=== PATIENT | female | born 1995 | race Caucasian/White ===

== ENCOUNTER 2018-05-06 16:32 | Emergency (ER) | payer SELFPAY ==
[~2018-05-06] VITALS: Ht 170.2 cm; Wt 94.3 kg
--- NOTE | 2018-05-06 17:02 | NUR ---
called patient and searched lobby and surrounding areas. no answer.
[2018-05-06 17:09] VITALS: BP 132/78
--- NOTE | 2018-05-06 17:14 | NUR ---
patient to lobby to wait available room with steady gait.
--- NOTE | 2018-05-06 18:59 | NUR ---
PT AMBULATES TO BED 3
--- NOTE | 2018-05-06 19:18 | NUR ---
23 yo f right sided inguinal radiating bl right lower back x 3 days. Patient denies any recent injury or fall. Patient denies any urinary complaints, hematuria, or n/v/d. Patient denies any urinary or bowel incontinence. pt denies injury to the area. aaox4. gcs 15. cms intact. rr even and unlabored. lungs bilaterally clear. abd soft, non-tender. er md talley notified. pt needs met. safety precautions in place. will continue to monitor.
--- NOTE | 2018-05-06 20:00 | NUR ---
PT RESTING COMFORTABLY ON [facility] AT THIS TIME W/ VSS, RR EVEN AND UNLABORED. SAFETY PRECAUTIONS IN PLACE. WILL CONTINUE TO MONITOR.
[2018-05-06] MEDS ORDERED: KETOROLAC 60 MG/2 ML VIAL IM ONE (20:55)
--- NOTE | 2018-05-06 21:07 | NUR ---
TRANSFER OF CARE AT THIS TIME, REPORT GIVEN TO DOUGLAS Reyes RN
--- NOTE | 2018-05-06 21:10 | NUR ---
ASSUMED CARE OF PT AT THIS TIME. PT RESTING COMFORTABLY. NAD. VSS. PT AWAITS ULTRASOUND, LAB RESULTS, AND MD DISPOSITION.
[2018-05-06 21:32] LABS: BASOPHILS # (AUTO) 0.1 K/uL (0.00-0.22); BASOPHILS % (AUTO) 1.2 % (0.0-2.0); EOSINOPHILS # (AUTO) 0.3 K/uL (0-0.4); EOSINOPHILS % (AUTO) 2.5 % (0.0-4.0); HEMATOCRIT 39.4 % (36-48); HEMOGLOBIN 13.2 g/dL (12.0-16.0); LYMPHOCYTES # (AUTO) 2.3 K/uL (2.5-16.5); LYMPHOCYTES % (AUTO) 19.8 % (20.5-51.1); MEAN CORPUSCULAR HEMOGLOBIN 28 pg (27-31); MEAN CORPUSCULAR HGB CONC 33 g/dL (33-37); MEAN CORPUSCULAR VOLUME 82.1 fL (80-94); MONOCYTES # (AUTO) 0.6 K/uL (0.8-1.0); MONOCYTES % (AUTO) 5.1 % (1.7-9.3); NEUTROPHILS # (AUTO) 8.2 K/uL (1.8-7.7); NEUTROPHILS % (AUTO) 71.4 % (42.2-75.2); PLATELET COUNT (AUTO) 207 K/uL (140-450); RED CELL DISTRIBUTION WIDTH 15.4 % (11.6-13.7); WHITE BLOOD COUNT (AUTO) 11.6 K/uL (4.8-10.8)
[2018-05-06 21:47] LABS: ANION GAP 12.1 (8-16); CARBON DIOXIDE 26.6 mmol/L (21-32); CREATININE 0.7 mg/dL (0.6-1.3); POTASSIUM 3.7 mmol/L (3.5-5.1)
[2018-05-06 21:50] LABS: TOTAL BILIRUBIN 0.2 mg/dL (0.0-1.0)
[2018-05-06 21:51] LABS: ALBUMIN 3.9 g/dL (3.4-5.0)
[2018-05-06 21:58] LABS: APPEARANCE,URINE CLEAR (CLEAR); COLOR,URINE YELLOW (YELLOW); PH,URINE 6.5 (5.0-9.0)
[2018-05-06 21:59] LABS: BILIRUBIN,URINE NEGATIVE (NEGATIVE); BLOOD, URINE NEGATIVE (NEGATIVE); NITRITE, URINE NEGATIVE (NEGATIVE); UGLUCOSE NEGATIVE (NEGATIVE)
[2018-05-06 22:00] LABS: LEUKOCYTE ESTERASE ,URINE NEGATIVE (NEGATIVE)
[2018-05-06 22:40] VITALS: BP 124/68
--- NOTE | 2018-05-06 22:40 | NUR ---
Patient discharged with v/s stable. Written and verbal after care instructions given and explained. Patient verbalized understanding. Ambulatory with steady gait. All questions addressed prior to discharge. Advised to follow up with PMD.
== END 2018-05-06 22:40 | disposition home or self-care (01) ==
LOC: MED 16:32
DX: D25.9 Leiomyoma of uterus, unspecified (principal)
CPT/HCPCS: 36415; 76856; 80053; 81003; 81025; 85025; 96372; 99285; J1885; Q0092

== ENCOUNTER 2018-05-07 13:12 | Emergency (ER) | payer SELFPAY ==
[~2018-05-07] VITALS: Ht 170.2 cm; Wt 94.5 kg
[2018-05-07 13:22] VITALS: BP 126/89
--- NOTE | 2018-05-07 14:16 | NUR ---
PATIENT PRESENTS TO ED WITH COMPLAINTS OF LOWER ABDOMINAL PAIN. PATIENT WAS SEEN LAST NIGHT IN ED WITH DX OF UTERINE FIBROIDS. PATIENT STATES PAIN IS UNBEARABLE AND SHE NEEDS SOMETHING STRONGER FOR PAIN. DENIES N/V/D; SKIN IS PINK/WARM/DRY; AAOX4 WITH EVEN AND STEADY GAIT; LUNGS CLEAR BL; HR EVEN AND REGULAR; PT DENIES ANY FEVER, CP, SOB, OR COUGH AT THIS TIME; PATIENT STATES PAIN OF 9/10 AT THIS TIME; VSS; PATIENT POSITIONED FOR COMFORT; HOB ELEVATED; BEDRAILS UP X1; BED DOWN. ER MD MADE AWARE OF PT STATUS.
[2018-05-07] MEDS ORDERED: NACL 0.9% 500 ML IV ONE ×2 (14:31)
[2018-05-07] MEDS ORDERED: KETOROLAC 30 MG/ML VIAL IVP ONE (14:35)
[2018-05-07] MEDS ORDERED: ONDANSETRON 4 MG/2 ML VIAL IVP ONE (14:35)
--- NOTE | 2018-05-07 14:56 | NUR ---
PATIENT TAKEN BY TAMI TO CT
--- NOTE | 2018-05-07 15:06 | NUR ---
PATIENT BACK FROM CT
[2018-05-07 16:07] VITALS: BP 116/81
== END 2018-05-07 16:07 | disposition home or self-care (01) ==
LOC: MED 13:12
DX: R10.32 Left lower quadrant pain (principal)
CPT/HCPCS: 74176; 96374; 96375; 99284; J1885; J2405

== ENCOUNTER 2021-04-19 01:33 | Inpatient (IN) | payer SELFPAY ==
[~2021-04-19] VITALS: Ht 170.2 cm; Wt 99.8 kg
[2021-04-19 02:00] VITALS: BP 140/83
[2021-04-19 02:53] LABS: BASOPHILS % (AUTO) 0.3 % (0.0-2.0); EOSINOPHILS # (AUTO) 0.1 K/uL (0-0.4); EOSINOPHILS % (AUTO) 1.5 % (0.0-4.0); HEMATOCRIT 29.3 % (36-48); HEMOGLOBIN 9.5 g/dL (12.0-16.0); LYMPHOCYTES # (AUTO) 2.9 K/uL (2.5-16.5); LYMPHOCYTES % (AUTO) 28.7 % (20.5-51.1); MEAN CORPUSCULAR HEMOGLOBIN 25 pg (27-31); MEAN CORPUSCULAR HGB CONC 33 g/dL (33-37); MEAN CORPUSCULAR VOLUME 75.6 fL (80-94); MONOCYTES # (AUTO) 0.8 K/uL (0.8-1.0); MONOCYTES % (AUTO) 7.6 % (1.7-9.3); NEUTROPHILS # (AUTO) 6.1 K/uL (1.8-7.7); NEUTROPHILS % (AUTO) 61.9 % (42.2-75.2); PLATELET COUNT (AUTO) 207 K/uL (140-450); RED BLOOD CELL COUNT(AUTO) 3.87 MIL/uL (4.20-5.40); RED CELL DISTRIBUTION WIDTH 20.7 % (11.6-13.7); WHITE BLOOD COUNT (AUTO) 9.9 K/uL (4.8-10.8)
[2021-04-19 02:53] LABS: APPEARANCE,URINE CLEAR (CLEAR); BILIRUBIN,URINE NEGATIVE (NEGATIVE); BLOOD, URINE NEGATIVE (NEGATIVE); COLOR,URINE YELLOW (YELLOW); LEUKOCYTE ESTERASE ,URINE NEGATIVE (NEGATIVE); NITRITE, URINE NEGATIVE (NEGATIVE); PH,URINE 5.5 (5.0-9.0); UGLUCOSE NEGATIVE (NEGATIVE)
[2021-04-19 03:09] LABS: ALBUMIN 2.3 g/dL (3.4-5.0); CREATININE 0.7 mg/dL (0.6-1.3); TOTAL BILIRUBIN 0.2 mg/dL (0.0-1.0)
[2021-04-19 03:14] LABS: BARBITURATE, URINE NEGATIVE ng/ml (NEG <=200); BENZODIAZEPINE, URINE NEGATIVE ng/mL (NEG <=200); CANNABINOID, URINE NEGATIVE ng/mL (NEG <=50); COCAINE, URINE NEGATIVE ng/mL (NEG <=300); OPIATE, URINE NEGATIVE ng/mL (NEG <=2000); PHENCYCLIDINE SCREEN,URINE NEGATIVE ng/mL (NEG <=25)
[2021-04-19] MEDS ORDERED: LACTATED RINGERS 500 ML IV ONE (13:00)
[2021-04-19] MEDS ORDERED: MORPHINE SULFATE 5 MG/ML VIAL IVP PRN (13:00)
[2021-04-19] MEDS ORDERED: OXYTOCIN 10 UNITS/ML VIAL IM SCH (13:00)
[2021-04-19] MEDS ORDERED: ONDANSETRON 4 MG/2 ML VIAL IVP PRN (13:00)
[2021-04-19] MEDS ORDERED: OXYTOCIN 20 UNITS in LACTATED RINGERS 1,000 ML IV SCH (13:00)
[2021-04-19] MEDS ORDERED: CARBOPROST 250 MCG/ML AMP IM PRN (13:00)
[2021-04-19] MEDS ORDERED: METHYLERGONOVINE 0.2 MG/ML AMP IM PRN (13:00)
[2021-04-19] MEDS: LACTATED RINGERS 1,000 ML IV SCH ×2 (13:22→19:58)
[2021-04-19] MEDS: MISOPROSTOL 25 MCG TAB VG SCH ×2 (14:00→19:59)
[2021-04-20] MEDS: MISOPROSTOL 25 MCG TAB VG SCH (01:55)
[2021-04-20] MEDS: LACTATED RINGERS 1,000 ML IV SCH (03:08)
[2021-04-20] MEDS ORDERED: MORPHINE SULFATE 10 MG/ML VIAL ONE (06:45)
[2021-04-20] MEDS ORDERED: OXYTOCIN 20 UNITS/LR PREMIX 1,000 ML IV ONE (07:51)
[2021-04-20] MEDS ORDERED: LIDOCAINE 1% 500 MG/50 ML VIAL ONE (08:18)
[2021-04-20] MEDS ORDERED: OXYTOCIN 10 UNITS/ML VIAL ONE (08:39)
[2021-04-20] MEDS ORDERED: METHYLERGONOVINE 0.2 MG/ML AMP IM PRN (12:15)
[2021-04-20] MEDS ORDERED: IBUPROFEN 800 MG TAB PO PRN (12:15)
[2021-04-20] MEDS ORDERED: MEASLES, MUMPS, AND RUBELLA 1 VIAL SQVAC ONE (12:15)
[2021-04-20] MEDS ORDERED: TEMAZEPAM 15 MG CAP PO PRN (12:15)
[2021-04-20] MEDS ORDERED: oxyCODONE/APAP 5/325 MG 1 TAB TAB PO PRN (12:15)
[2021-04-20] MEDS ORDERED: BENZOCAINE/MENTHOL 20%-0.5% 60 GM CAN TP PRN (12:15)
[2021-04-20] MEDS ORDERED: SODIUM PHOSPHATE 118 ML ENEM RC PRN (12:15)
[2021-04-21 05:29] LABS: HEMATOCRIT 26.6 % (36-48); HEMOGLOBIN 8.6 g/dL (12.0-16.0)
[2021-04-21] MEDS ORDERED: IBUP-2213 PO (14:31)
[2021-04-21] MEDS ORDERED: DOCUSATE SOD/SENNA 50/8.6 MG 1 TAB PO SCH (21:00)
== END 2021-04-21 15:30 | disposition home or self-care (01) | DRG 806 ==
LOC: MLD 01:33 → OBSVTOIN 01:33 → MLD 01:44 → MFCC 04-20 12:19
PROVIDERS: ADMIT Obstetrics & Gynecology; ATTEND Obstetrics & Gynecology
PROC: 10D07Z6 Extraction of Products of Conception, Vacuum, Via Natural or Artificial Opening (ICD-10-PCS; principal; 2021-04-20)
PROC: 3E0R3BZ Introduction of Anesthetic Agent into Spinal Canal, Percutaneous Approach (ICD-10-PCS; 2021-04-20)
PROC: 00HU33Z Insertion of Infusion Device into Spinal Canal, Percutaneous Approach (ICD-10-PCS; 2021-04-20)
PROC: 3E0234Z Introduction of Serum, Toxoid and Vaccine into Muscle, Percutaneous Approach (ICD-10-PCS; 2021-04-20)
PROC: 3E0134Z Introduction of Serum, Toxoid and Vaccine into Subcutaneous Tissue, Percutaneous Approach (ICD-10-PCS; 2021-04-20)
DX: O36.8130 Decreased fetal movements, third trimester, not applicable or unspecified (principal); R71.0 Precipitous drop in hematocrit; Z37.0 Single live birth; Z3A.38 38 weeks gestation of pregnancy; O77.0 Labor and delivery complicated by meconium in amniotic fluid; Z20.822 Contact with and (suspected) exposure to COVID-19; Z23 Encounter for immunization; O99.013 Anemia complicating pregnancy, third trimester
CPT/HCPCS: 36415; 59200; 59409; 76805; 76819; 80053; 80305; 81003; 85018; 85025; 86592; 86762; 86886; 86900; 86901; 87340; 87653-90; C1758; J2001; J2270; J2405; J2590

== ENCOUNTER 2023-04-10 10:27 | Emergency (ER) | payer MEDICAID ==
[~2023-04-10] VITALS: Ht 170.2 cm; Wt 96.2 kg
[~2023-04-10 10:27] MED LIST: IBUP-2213 PO
[2023-04-10 10:30] VITALS: BP 145/83
[2023-04-10] MEDS ORDERED: LIDOCAINE 1% 500 MG/ 50 ML VIAL INJ ONE (10:55)
[2023-04-10] MEDS ORDERED: LIDOCAINE MPF 1% 5 ML ONE (11:02)
--- NOTE | 2023-04-10 11:28 | NUR ---
Pt bibs for lac at bottom of R small toe. Pt stepped on a sharp plastic top with cut the bottom of her foot. Pain is tolerable, 5/10. No other complaints. Md at bedside. Pt a/o x 4, vss, no ss of acute distress, breathing equal and unlabored, speech clear.
--- NOTE | 2023-04-10 11:54 | NUR ---
sutured pt at bedside then gave order for dc. Patient discharged with v/s stable. Written and verbal after care instructions given and explained. Patient verbalized understanding. Ambulatory with steady gait. All questions addressed prior to discharge. Advised to follow up with PMD.
[2023-04-10 11:56] VITALS: BP 155/82
== END 2023-04-10 11:54 | disposition home or self-care (01) ==
LOC: MED 10:27
DX: S91.114A Laceration without foreign body of right lesser toe(s) without damage to nail, initial encounter (principal); Z79.899 Other long term (current) drug therapy; W22.8XXA Striking against or struck by other objects, initial encounter; Y93.89 Activity, other specified; Y92.89 Other specified places as the place of occurrence of the external cause; Y99.8 Other external cause status
CPT/HCPCS: 12001; 90471; 90715; 99283; J2001

== ENCOUNTER 2023-05-07 11:41 | Emergency (ER) | payer MEDICAID ==
[~2023-05-07] VITALS: Ht 175.3 cm; Wt 91.2 kg
[2023-05-07 12:02] VITALS: BP 130/94; PULSE 127; RESP 22; TEMP 98.1; O2SAT 98
[2023-05-07] MEDS ORDERED: ONDANSETRON 4 MG/2 ML VIAL IVP ONE (12:05)
[2023-05-07] MEDS ORDERED: LORazepam 2 MG/ML VIAL IVP ONE (12:05)
[2023-05-07] MEDS ORDERED: NACL 0.9% 1,000 ML IV ONE (12:05)
[2023-05-07 12:31] LABS: BASOPHILS # (AUTO) 0.1 K/uL (0.00-0.22); BASOPHILS % (AUTO) 0.6 % (0.0-2.0); HEMATOCRIT 36.2 % (36-48); HEMOGLOBIN 12.7 g/dL (12.0-16.0); LYMPHOCYTES # (AUTO) 0.5 K/uL (2.5-16.5); LYMPHOCYTES % (AUTO) 4.4 % (20.5-51.1); MEAN CORPUSCULAR HEMOGLOBIN 29 pg (27-31); MEAN CORPUSCULAR HGB CONC 35 g/dL (33-37); MEAN CORPUSCULAR VOLUME 82.8 fL (80-94); MONOCYTES # (AUTO) 0.6 K/uL (0.8-1.0); MONOCYTES % (AUTO) 5.7 % (1.7-9.3); NEUTROPHILS # (AUTO) 9.9 K/uL (1.8-7.7); NEUTROPHILS % (AUTO) 89.3 % (42.2-75.2); PLATELET COUNT (AUTO) 108 K/uL (140-450); RED BLOOD CELL COUNT(AUTO) 4.38 MIL/uL (4.20-5.40); RED CELL DISTRIBUTION WIDTH 15.1 % (11.6-13.7)
[2023-05-07 12:51] LABS: ANION GAP 16.8 (8-16); ASPARTATE AMINOTRANSFERASE 43 U/L (15-37); CARBON DIOXIDE 22.4 mmol/L (21-32); CHLORIDE 98 mmol/L (98-107); GFR ARICAN-AMERICAN 84 mL/min (>90); GLUCOSE 156 mg/dL (74-106); LIPASE 58 U/L (73-393); POTASSIUM 3.2 mmol/L (3.5-5.1); SODIUM SERUM 134 mmol/L (136-145); TOTAL BILIRUBIN 0.8 mg/dL (0.0-1.0); UREA NITROGEN, BLOOD 9 mg/dL (7-18)
[2023-05-07 13:35] LABS: BILIRUBIN,URINE NEGATIVE (NEGATIVE); BLOOD, URINE 3+ (NEGATIVE); LEUKOCYTE ESTERASE ,URINE 2+ (NEGATIVE); NITRITE, URINE NEGATIVE (NEGATIVE); PH,URINE 6.5 (5.0-9.0); UGLUCOSE NEGATIVE (NEGATIVE)
[2023-05-07 13:37] LABS: APPEARANCE,URINE CLOUDY (CLEAR); COLOR,URINE AMBER (YELLOW)
[2023-05-07 13:47] LABS: BARBITURATE, URINE NEGATIVE ng/ml (NEG <=200); BENZODIAZEPINE, URINE NEGATIVE ng/mL (NEG <=200); CANNABINOID, URINE POSITIVE ng/mL (NEG <=50); COCAINE, URINE NEGATIVE ng/mL (NEG <=300); OPIATE, URINE NEGATIVE ng/mL (NEG <=2000); PHENCYCLIDINE SCREEN,URINE NEGATIVE ng/mL (NEG <=25)
[2023-05-07] MEDS ORDERED: MAGNESIUM OXIDE 400 MG TAB PO ONE (14:00)
[2023-05-07] MEDS ORDERED: POTASSIUM CHLORIDE 10 MEQ TABER PO ONE (14:00)
[2023-05-07] MEDS ORDERED: cefTRIAXone 1,000 MG VIAL ONE (14:02)
[2023-05-07] MEDS ORDERED: ONDA-188 PO (14:20)
[2023-05-07] MEDS ORDERED: LORA-476 PO (14:20)
[2023-05-07] MEDS ORDERED: NAPR-1704 PO (14:20)
[2023-05-07] MEDS ORDERED: CEPH-588 PO (14:20)
[2023-05-07 14:49] VITALS: BP 128/74; PULSE 90; RESP 19; TEMP 98; O2SAT 98
--- NOTE | 2023-05-07 14:49 | NUR ---
Patient discharged with v/s stable. Written and verbal after care instructions given and explained. Patient alert, oriented and verbalized understanding of instructions. Ambulatory with steady gait. All questions addressed prior to discharge. ID band removed. Patient advised to follow up with PMD. Rx of given. Patient educated on indication of medication including possible reaction and side effects. Opportunity to ask questions provided and answered. has ride home
== END 2023-05-07 14:49 | disposition home or self-care (01) ==
LOC: MED 11:41
DX: F15.10 Other stimulant abuse, uncomplicated (principal); N39.0 Urinary tract infection, site not specified; E87.6 Hypokalemia; F41.9 Anxiety disorder, unspecified; R07.9 Chest pain, unspecified; M79.10 Myalgia, unspecified site; Z91.013 Allergy to seafood; Z79.899 Other long term (current) drug therapy
CPT/HCPCS: 36415; 71045; 80053; 80305; 81001; 81025; 83690; 84484; 85025; 87086; 93005; 96361; 96365; 96375; 99285; J0696; J2060; J2405; J7030; Q0092